=== PATIENT | male | born 1975 | race African-American/Black ===

== ENCOUNTER 2024-06-19 16:48 | Emergency (ER) | payer BC ==
[~2024-06-19] VITALS: Ht 180.3 cm; Wt 108.5 kg
[2024-06-19] MEDS ORDERED: ATOR40TA75 PO (16:57)
[2024-06-19] MEDS ORDERED: ERYT5OIN25 OS (18:37)
[2024-06-19 19:00] VITALS: BP 153/70; TEMP 97.7; O2SAT 97
[2024-06-19] MEDS: ERYTHROMYCIN OPHTH OINT OS ONE (19:09)
== END 2024-06-19 19:17 | disposition home or self-care (01) ==
LOC: M ED 16:48
DX: H10.32 Unspecified acute conjunctivitis, left eye (principal); Z79.2 Long term (current) use of antibiotics; Z79.02 Long term (current) use of antithrombotics/antiplatelets